=== PATIENT | female | born 1990 | race African-American/Black ===

== ENCOUNTER 2018-04-21 08:04 | Emergency (ER) | payer SELFPAY ==
[~2018-04-21] VITALS: Ht 162.6 cm; Wt 60.0 kg
[~2018-04-21 08:04] MED LIST: DEPA250T2 PO; DIVA250T PO; MOTR200T PO
[2018-04-21 08:08] VITALS: BP 113/57; PULSE 84; RESP 16; TEMP 98.6; O2SAT 100
[2018-04-21] MEDS ORDERED: DEPA250T2 PO (08:16)
--- NOTE | 2018-04-21 09:22 | PD ---
HPI Chief Complaint: Eye Problems/Injury Time Seen by Provider: 09:09 Travel History International Travel<30 days: No Contact w/Intl Traveler<30days: No Traveled to known affect area: No History of Present Illness HPI 27-year-old female presents to the emergency department with complaint of right eye swelling that she woke up with this morning. When she went to bed last night her eye was completely normal. She says she has been sleeping in a cockroach infested house and is wondering if it may be related to that. She denies change in vision, eye pain, eye injury. Denies photophobia. Denies fever, vomiting. Symptoms are moderate in severity. Describes it as "feels like a lot of fluid in it." Has tried cold and hot compresses with minimal relief. Has not taken any medications to alleviate her symptoms. No known aggravating factors. No known allergies. History of seizures and takes Depakote. Primary care provider is the [facility]. Has no other medical complaints. No other modifying factors or associated signs and symptoms. PFSH Past Medical History Diminished Hearing: No Psychiatric: Yes (HX OF SUICIDAL IDEATION) Immunizations Current: Yes Seizures: Yes Tetanus Vaccination: < 5 Years ?: Not : 1 Para: 0 Miscarriage: 1 : 0 Social History Alcohol Use: Yes (WEEKENDS) Tobacco Use: Yes (1 PACK EVERY 3 DAYS) Substance Use: No Allergies-Medications (Allergen,Severity, Reaction): Coded Allergies: No Known Allergies (Verified Adverse Reaction, Unknown, 04/21/18) Reported Meds & Prescriptions Reported Meds & Active Scripts Active Ibuprofen 800 Mg Tab 800 Mg PO Q6HR PRN Deltasone (Prednisone) 20 Mg Tab 40 Mg PO DAILY 4 Days start 04/22/2018 Amoxicillin 875 Mg Tab 875 Mg PO BID 10 Days Bactrim DS (Sulfamethoxazole-Trimethoprim) 800-160 Mg Tab 1 Tab PO BID [address] (Divalproex Sodium) 250 Mg Tabdr 250 Mg PO BID Review of Systems Except as stated in HPI: all other systems reviewed are Neg Physical Exam Narrative GENERAL: Well-nourished, well-developed black female patient, in no acute distress; afebrile, nontoxic-appearing SKIN: Warm and dry. HEAD: Atraumatic. Normocephalic. EARS: Bilateral pinnae and external canals appear within normal limits. Bilateral tympanic membranes without erythema, dullness or perforation. EYES: Pupils equal and round at 3 mm with brisk reaction. PERRLA. EOMI. visual acuity right 20/30; left 20/20 without corrective lens. Right lid eversion with no foreign body noted. Right eye without scleral erythema. Upper eyelid with edema and minimal erythema consistent with possible preseptal cellulitis. No orbital tenderness. Right eye without photophobia. No consensual photophobia. No scleral icterus. No drainage. ENT: Mucosa pink and moist. Airway patent. NECK: Trachea midline. CARDIOVASCULAR: Regular rate. RESPIRATORY: No accessory muscle use. GASTROINTESTINAL: Flat NEUROLOGICAL: Awake and alert. Oriented 3. No obvious cranial nerve deficits. Motor grossly within normal limits. Normal speech. PSYCHIATRIC: Appropriate mood and affect; insight and judgment normal. Data Data Last Documented VS Vital Signs Date Time Temp Pulse Resp B/P (MAP) Pulse Ox O2 Delivery O2 Flow Rate FiO2 04/21/18 08:08 98.6 84 16 113/57 (75) 100 Orders Orders Sulfamet-Trimeth Ds 800-160 Mg (Bactrim (04/21/18 09:30) Amoxicillin (Trimox) (04/21/18 09:30) Ibuprofen (Motrin) (04/21/18 09:30) Prednisone (Deltasone) (04/21/18 09:30) Ed Discharge Order (04/21/18 09:28) [facility] Medical Decision Making Medical Screen Exam Complete: Yes Emergency Medical Condition: Yes Medical Record Reviewed: Yes Differential Diagnosis Preseptal cellulitis, allergic conjunctivitis, less likely orbital cellulitis Narrative Course 27-year-old female physical exam consistent with possible preseptal cellulitis of the right upper eyelid. She woke up with the symptoms this morning. Eye exam is otherwise unremarkable. She is afebrile, nontoxic-appearing. EOMI. PERRLA. No eye drainage. No eye pain. Will treat the patient for preseptal cellulitis. Bactrim, amoxicillin, Deltasone, ibuprofen administered in the ER. Bactrim, amoxicillin, Deltasone, ibuprofen prescribed for home. Instructed patient to follow up with primary care provider. Patient verbalizes understanding and agreement with treatment plan. Patient is medically cleared and stable for discharge. Discussed reasons to return to the emergency department. Patient agrees with treatment plan. The patients vital signs are stable and the patient is stable for outpatient follow-up and treatment. Patient discharged home, stable and in no acute distress. Diagnosis Primary Impression: Preseptal cellulitis of right upper eyelid Referrals: Primary Care Physician Patient Instructions: General Instructions, Orbital Cellulitis (ED) Departure Forms: Tests/Procedures, Work Release Enter return to work date: Apr 22, 2018 Additional Instructions: Ibuprofen or Tylenol as directed and as needed for pain/inflammation Oral steroids as prescribed Antibiotics as prescribed and complete full course Warm and/or cool compresses to help with pain and inflammation Wash hands frequently; good hand hygiene Follow-up with primary care provider Return to the emergency department immediately with worsening of symptoms, particularly with symptoms as discussed Med/Other Pt SpecificInfo: Prescription(s) given Scripts Ibuprofen (Ibuprofen) 800 Mg Tab 800 MG PO Q6HR Y for PAIN, #20 TAB 0 Refills Prov: Catarina Canales 04/21/18 Prednisone (Deltasone) 20 Mg Tab 40 MG PO DAILY for 4 Days, #8 TAB 0 Refills start 04/22/2018 Prov: Catarina Canales 04/21/18 Amoxicillin (Amoxicillin) 875 Mg Tab 875 MG PO BID for Infection for 10 Days, #20 TAB 0 Refills Prov: Catarina Canales 04/21/18 Sulfamethoxazole-Trimethoprim (Bactrim DS) 800-160 Mg Tab 1 TAB PO BID for Infection for 10 Days, #20 TAB 0 Refills Prov: Catarina Canales 04/21/18 Disposition: 01 DISCHARGE HOME Condition: Stable Catarina Canales Apr 21, 2018 09:22
[2018-04-21] MEDS ORDERED: AMOX875T PO (09:25)
[2018-04-21] MEDS ORDERED: IBUP1TAB7 PO (09:25)
[2018-04-21] MEDS ORDERED: PRED-503 PO (09:25)
[2018-04-21] MEDS ORDERED: BACT800T5 PO (09:25)
[2018-04-21] MEDS ORDERED: AMOXICILLIN 875 MG TAB PO ONE (09:30)
[2018-04-21] MEDS ORDERED: SULFAMETHOXAZOLE-TRIMETHOPRIM DS 800-160 MG TAB PO ONE (09:30)
[2018-04-21] MEDS ORDERED: predniSONE 20 MG TAB PO ONE (09:30)
[2018-04-21] MEDS ORDERED: IBUPROFEN 800 MG TAB PO ONE (09:30)
== END 2018-04-21 09:46 | disposition home or self-care (01) ==
LOC: NEPD 08:04
DX: L03.213 Periorbital cellulitis (principal); F17.200 Nicotine dependence, unspecified, uncomplicated; Z86.69 Personal history of other diseases of the nervous system and sense organs; Z79.899 Other long term (current) drug therapy
CPT/HCPCS: 99283; J7512